=== PATIENT | female | born 1940 | race Caucasian/White ===

== ENCOUNTER 2016-07-11 18:04 | Observation (INO) | payer MEDICARE, OTHER ==
[~2016-07-11] VITALS: Ht 175.3 cm; Wt 85.6 kg
[~2016-07-11 18:04] MED LIST: ASCO100089 PO; BET80 PO; BETA1TAB19 PO; CALC-190 PO; CHOL10008 PO; FEXO-15 PO; FLUO15OI TOPICAL; LACT1CAP75 PO; LISI-571 PO; LUTE1CAP PO; METO25TA99 PO; OMEG1CAP17 PO; POTA2TAB5 PO; RIVA10TA PO
[2016-07-11 18:06] VITALS: BP 154/86; PULSE 83; RESP 16; O2SAT 100
[2016-07-11 18:56] VITALS: BP 144/54; PULSE 76; RESP 16; O2SAT 99
[2016-07-11 19:34] LABS: BASOPHILS % (AUTO) 0.2 % (0-3); EOSINOPHILS % (AUTO) 0.4 % (0-5); Mean Corpuscular Hemoglobin 31.4 pg (27.0-35.0); Mean Corpuscular Volume 95.4 fL (81-100); NEUTROPHILS % (AUTO) 84.9 % (40-74); Platelet Count 229 bil/L (150-400)
[2016-07-11] MEDS ORDERED: cefTRIAXone Inj 2,000 MG in IV Premix 1 EACH IV ONE (20:00)
--- NOTE | 2016-07-11 20:25 | ED.REPORT ---
HPI-General Illness Date of Service Jul 11, 2016 ED Provider: Tania Gomez MD Ms. Goldsmith is a 76 y/o woman with history of atrial fibrillation. Her noticed this morning that her heart rate was irregular with a finger machine but she took her metoprolol and sotalol early. She then was in normal sinus rhythm. She didn't look well this morning. She was fine until 4:00 PM then "cold " and couldn't function. Nursing Notes Stated Complaint: HEART Chief Complaint: General Complaint Allergies: Coded Allergies: celecoxib (Verified Allergy, Mild, ???, 03/08/16) Scheduled Ascorbic Acid (Vitamin C) 1,000 Mg Tab.chew 1,000 MG PO DAILY Calcium Carb/Vit D3/Mag11/Zinc (Mrhuxgj-Fof-Jlwf-Vit D Tablet) 1 Each Tablet 1 EACH PO DAILY Cholecalciferol (Vitamin D3) (Vitamin D3) 1,000 Unit Tab.chew 1,000 UNIT PO DAILY Diltiazem ER (Cardizem CD) 120 Mg Cap.er.24h 120 MG PO DAILY Lactobacillus Combo No.10 (Probiotic) 1 Each Capsule 1 EACH PO DAILY Lisinopril (Lisinopril) 5 Mg Tablet 5 MG PO DAILYWD Lutein Extract/Zeaxanthin Ext (Lutein 15 mg Softgel) 1 Each Capsule 1 EACH PO DAILY [place]-3 Fatty Acids/Fish Oil (Fish Oil Conc 1,000 mg Softgel) 1 Each Capsule 1 EACH PO DAILY Potassium Gluconate (Potassium Gluconate) 90 Mg Tablet 90 MG PO DAILY Rivaroxaban (Xarelto) 10 Mg Tablet 20 MG PO DAILY@17 Vit A/Vit C/Vit E/Zinc/Copper (Preservision Areds Tablet) 1 Each Tablet 1 EACH PO DAILY Scheduled PRN Fexofenadine (Adela Allergy) 60 Mg Tablet 60 MG PO PRN PRN PRN Allergy Fluocinonide 0.05% Oint (Fluocinonide 0.05% Oint) 15 Gm Oint...g. 1 APPLIC TOPICAL PRN PRN PRN Rash General Time Seen by MD: 20:30 Chief Complaint Not feeling well Hx Obtained From: Patient Onset Occurred: 1 - 4 hours ago Symptom Duration: Since onset Severity: Current: No pain currently Associated with: Reports: Anorexia, Weakness, Denies: Abdominal pain, Chest pain, Congestion, Cough, Difficulty breathing, Fever, Headache, Loss of consciousness, Pain, Shortness of breath Additional Notes: Pt denies recent travel or changes in her diet. No sick contacts at home. Pertinent Negative: Exacerbated by nothing, Relieved by nothing Past Medical History Past Medical History Reports: Atrial fibrillation Past Surgical History left arm surgery to remove a cyst Reports: Hip replacement (bilateral) Smoking History Former Smoker Social History Alcohol Use: 3-5 per day (1 glass of white wine) Drug Use: Denies drug use Ambulatory Status Independent Review of Systems Full Review of Systems Constitutional: Reports: Chills, Fatigue, Weakness - generalized, Denies: Fever Complete sys rev & neg: except as marked. Physical Exam Vital Signs Vital Signs Date Time Temp Pulse Resp B/P Pulse Ox O2 Delivery O2 Flow Rate FiO2 07/11/16 23:19 81 15 117/58 96 Room Air 07/11/16 21:12 84 17 117/48 94 Room Air 07/11/16 18:56 76 16 144/54 99 Room Air 07/11/16 18:06 36.8 83 16 154/86 100 Room Air Initial VS: Reviewed, Vital signs abnormal General/Constitutional: Well-developed, Well-nourished Head / Eyes: Atraumatic, Normocephalic, PERRL ENT: Mucous membranes moist, Conjunctiva normal, No scleral icterus Neck: Supple, Non-tender, Full range of motion Respiratory: Breath sounds normal, Clear to auscultation, No respiratory distress Cardiovascular: Regular rate & rhythm, Heart sounds normal, Intact distal pulses Abdomen / GI: Soft, Non-tender, No guarding, No rebound, No distention Back: No CVA tenderness Lymphatic: No lymphadenopathy Extremities: Vascular intact, Neuro intact, No swelling, No tenderness Skin: Warm, Dry, No cyanosis Neurologic: Alert, Oriented, Nonfocal Psychiatric: Mood/affect normal, Behavior normal, Normal thought content Soft Tissue Neck: Positive: Skin erythematous... (Anterior) Interpretation & Diagnostics Interpretation & Diagnostics: CXR IMPRESSION: No acute cardiopulmonary disease. Lab Results Interpretation Result Diagram: 07/13/16 0505 07/13/16 0505 Test 07/11/16 18:20 07/11/16 20:14 07/11/16 20:53 Hold Purple Top Tube Received (Received) Prothrombin Time 10.3sec (8.1-12.5) Prothromb Time International Ratio 0.96ratio Hold Blue Top Tube Received (Received) Magnesium Level 1.9mg/dL (1.6-2.6) Total Bilirubin 0.5mg/dL (0.0-1.2) Aspartate Amino Transf (AST/SGOT) 23U/L (0-50) Alanine Aminotransferase (ALT/SGPT) 15U/L (0-32) Alkaline Phosphatase 71U/L (25-165) Troponin T < 0.010ug/L (0.0-0.011) Pro-B-Type Natriuretic Peptide 483.7pg/mL (0-738) Total Protein 7.5g/dL (6.4-8.4) Albumin 4.2g/dL (3.4-5.0) Hold [place] Top Tube Received (Received) Hold [place] Top Tube Received (Received) Lactic Acid Level 1.3mmol/L (0.4-2.0) Urine Color Yellow (YELLOW) Urine Appearance Clear (CLEAR,HAZY) Urine pH 6.0 (5.0-8.0) Urine Specific [place] 1.020 (1.003-1.035) Urine Protein Negativemg/dL (NEG,TRACE) Urine Glucose (UA) Negativemg/dL (NEGATIVE) Urine Ketones Negativemg/dL (NEGATIVE) Urine Occult Blood Negative (NEGATIVE) Urine Nitrite Negative (NEGATIVE) Urine Bilirubin Negative (NEGATIVE) Urine Urobilinogen Normalmg/dL (NORMAL) Urine Leukocyte Esterase Negative (NEGATIVE) Urine RBC 0-2/hpf (0-2) Urine WBC 0-5/hpf (0-5) Urine Epithelial Cells Few/hpf (NONE-MOD) Urine Crystals None seen (NONE SEEN) Urine Bacteria Few/hpf (NONE-FEW) Urine Hyaline Casts None/lpf (NONE) Urine Granular Casts None seen (NONE SEEN) Urine Waxy Casts None seen (NONE SEEN) Urine Red Blood Cell Casts None seen (NONE SEEN) Urine White Blood Cell Casts None seen (NONE SEEN) Urine Mucus None seen (None Seen) Urine Trichomonas None seen (NONE SEEN) Urine Yeast None (NONE SEEN) Urinalysis Comment None Urine Culture Reflexed Not indicated Re-Eval/Medical Decision Med Decision/Clinical Course 1. Leukocytosis -Elevated WBC 16.7 -No source of infection identified at this time. CXR showed no acute changes and UA was not concerning for a UTI -Physical exam is unremarkable except for mild facial and neck flushing 2. Generalized weakness -Acute Discharge & Departure Primary Impression: Leukocytosis Additional Impression: Generalized weakness Disposition: ADMITTED TO HOSPITAL Referrals: Hernandez Amato MD (PCP) Attending Statement Patient seen and examined. Appears acutely ill, weak, leukocytosis. no fever, no significant respiratory distress, no source of infection identified. No headache, no pneumonia, no significant abdominal pain, no skin breakdown, no urinary symptoms Initial plan was to discharge home with explanation of leukocytosis however upon further examination she is weaker flushed and clinically very concerning appearing. At this point I am uncomfortable sending her home, leukocytosis does suggest some infectious source that I have yet to identify. I suggested hospital admission additional observation to let her body declare itself Reviewed with hospitalist. Admitted. copies to: Hernandez Amato MD, Marissa L DO Jul 11, 2016 20:25 Tania Gomez MD Jul 12, 2016 00:08 Few/hpf (NONE-FEW) Urine Hyaline Casts None/lpf (NONE) Urine Granular Casts None seen (NONE SEEN) Urine Waxy Casts None seen (NONE SEEN) Urine Red Blood Cell Casts None seen (NONE SEEN) Urine White Blood Cell Casts None seen (NONE SEEN) Urine Mucus None seen (None Seen) Urine Trichomonas None seen (NONE SEEN) Urine Yeast None (NONE SEEN) Urinalysis Comment None Urine Culture Reflexed Not indicated Re-Eval/Medical Decision Med Decision/Clinical Course 1. Leukocytosis -Elevated WBC 16.7 -No source of infection identified at this time. CXR showed no acute changes and UA was not concerning for a UTI -Physical exam is unremarkable except for mild facial and neck flushing 2. Generalized weakness -Acute Discharge & Departure Primary Impression: Leukocytosis Additional Impression: Generalized weakness Disposition: ADMITTED TO HOSPITAL Referrals: Hernandez Amato MD (PCP) Attending Statement Patient seen and examined. Appears acutely ill, weak, leukocytosis. no fever, no significant respiratory distress, no source of infection identified. No headache, no pneumonia, no significant abdominal pain, no skin breakdown, no urinary symptoms Initial plan was to discharge home with explanation of leukocytosis however upon further examination she is weaker flushed and clinically very concerning appearing. At this point I am uncomfortable sending her home, leukocytosis does suggest some infectious source that I have yet to identify. I suggested hospital admission additional observation to let her body declare itself Reviewed with hospitalist. Admitted. copies to: Hernandez Amato MD, Marissa L DO Jul 11, 2016 20:25 Tania Gomez MD Jul 12, 2016 00:08
[2016-07-11 20:29] LABS: TROPONIN T < 0.010 ug/L (0.0-0.011)
--- NOTE | 2016-07-11 20:41 | DRSVH ---
PROCEDURE: X-RAY CHEST ONE VIEW, PORTABLE ([id number]) INDICATIONS: 76 year-old female with leukocytosis and weakness. TECHNIQUE: One view of the chest was acquired. COMPARISON: [facility], , SCREENING BILAT W/IMPLANTS MAMMO, 06/18/2015, 10:28. FINDINGS: Surgical changes and devices: Breast implants are again noted. Lungs and pleura: No pleural effusions or pneumothorax. Lungs are clear. Mediastinum: Mediastinal contours appear normal. Heart size is normal. Bones and chest wall: No suspicious bony lesions. Overlying soft tissues appear unremarkable. IMPRESSION: No acute cardiopulmonary disease. Dictated by: Emre Oneil M.D. on 07/11/2016 at 20:39 Approved by: Emre Oneil M.D. on 07/11/2016 at 20:39
[2016-07-11 21:12] VITALS: BP 117/48; PULSE 84; RESP 17; O2SAT 94
[2016-07-11 21:46] LABS: APPEARANCE,URINE CLEAR (CLEAR,HAZY); COLOR,URINE YELLOW (YELLOW); OCCULT BLOOD,URINE NEGATIVE (NEGATIVE); UROBILINOGEN,URINE NORMAL (NORMAL)
[2016-07-11 23:19] VITALS: BP 117/58; PULSE 81; RESP 15; O2SAT 96
[2016-07-12] VITALS (8 sets, daily range): BP systolic 105–149; BP diastolic 48–82; PULSE 72–144; RESP 16–20; O2SAT 96–98
[2016-07-12] MEDS ORDERED: Alum-Mag Hydrox-Simeth 30 mL Suspension PO PRN (00:50)
[2016-07-12] MEDS ORDERED: Polyethylene Glycol (PEG) 17 Gm Powder PO PRN (00:50)
[2016-07-12] MEDS ORDERED: Ondansetron 2 mg/mL 2 mL Inj IVPUSH PRN (00:50)
[2016-07-12 01:26] LABS: INR 0.96 ratio
--- NOTE | 2016-07-12 01:33 | PCM.HPMED ---
Subjective Date of Service Jul 12, 2016 Primary Provider: Admitting Physician: Shreya Garcia MD Primary Care Physician: Hernandez Amato MD Attending Physician: Shreya Garcia MD Chief Complaint: Weakness, Chills History of Present Illness: Meka is a 76 yo F with history of Paroxysmal Afib with RVR and HTN who presents with acute onset of chills and fatigue. She reports that after lunchtime, she developed sudden chills and fatigue after getting [place] from the health club. She reports some lightheadedness but denies any fevers, N/V/D, neck stiffness, chest pain, focal weakness, SOB, or cough. She reports she was at baseline prior to this episode and has been compliant with her medications. She denies any sick contacts, recent travels, or change in her medications. She denies any anginal symptoms and reports that she did have an atrial fibrillation episode earlier in the day but she usually does not have any symptoms when she goes into Afib. She is currently on rhythm control with Sotalol and has been stable on her current medication regimen. In the ED her vitals were stable and her CBC showed WBC of 16.7 with Neutrophils of 84.9%. Her CMP and lactic acid was unremarkable. Her UA was also unremarkable. Her Cxr did not show any acute disease. EKG was NSR with rate in the 80s. She was originally planned for discharge but upon re-examination, patient continued to appear ill and weak, and with a leukocytosis, IV Rocephin was initiated for presumed infection. Review of Systems: 12 Point ROS negative except as stated in HPI Allergies Coded Allergies: celecoxib (Verified Allergy, Mild, ???, 03/08/16) Home Medications From Grata Adela 60 mg Tab take 1 tablet (60MG) by ORAL route 2 times every day calcium 500 mg Tab 2 daily clobetasol 0.05 % scalp solution mix with CeraVe cream twice a day for two weeks , once a day for one week then only 2-3 times a week to the worst areas desonide 0.05 % topical ointment apply twice a day for one week then daily for one week to affected areas on the eyes Fish Oil 1,000 mg Cap 2 daily fluocinonide 0.05 % topical ointment apply by topical route 2 times every day to the affected area(s) for 2 weeks then as needed 1-2 times a week to the worst areas lisinopril 5 mg tablet take 1 tablet by oral route every day lutein-zeaxanthin 15 mg-0.7 mg capsule take 1 capsule by oral route every day metoprolol succinate ER 25 mg tablet,extended release 24 hr take 1 tablet by oral route 2 times every day potassium gluconate 550 mg (90 mg) tablet take 2 tablet by oral route every day PreserVision AREDS 14,320 unit-226 mg-200 unit capsule Probiotic 20 billion cell capsule 30 billion sotalol 80 mg tablet take 1 tablet by oral route 2 times every day triamcinolone acetonide 0.1 % topical cream apply by topical route 2 times every day a thin layer to the affected area(s) for 2 wks then as needed 3 times a week Vitamin C 1,000 mg Tab daily Vitamin D3 1,000 unit tablet take 1 by Oral route every day Xarelto 20 mg tablet take 1 tablet by oral route every day with the evening meal Zovirax 5 % Ointment apply by TOPICAL route every 3 hours 6 times per day to the affected area(s) PMH Paroxysmal Atrial Fibrillation w/ RVR - currently rhythm controlled HTN Reports Eczema Surgical History Bilateral Hip Replacement Breast Implants Family History Noncontributory Social History Hx Alcohol Use: Yes (2 glasses of white wine a day) Hx Substance Use: No Hx Tobacco Use: No Smoking Status: Former Smoker Living Arrangement: with Family Exam Vital Signs Vital Sign - Last Date Time Temp Pulse Resp B/P Pulse Ox O2 Delivery O2 Flow Rate FiO2 07/12/16 00:48 37.6 83 16 144/48 96 Room Air Intake and Output 07/11/16 07/11/16 07/12/16 Cumulative From/Thru 15:00 23:00 07:00 07/11/16 18:06 - 07/11/16 20:51 Output Total 150 ml 150 ml Balance -150 ml -150 ml Output Urine Total 150 ml 150 ml # Voids 1 1 Exam Gen: Well developed Female who appears fatigued HEENT: Sclera Non-icteric, PERRLA, EOMI, Oropharynx non-erythematous Neck: Soft, non-tender, no lymphadenopathy noted CV: RRR with systolic murmur noted, no JVD noted Resp: CTAB, no w/r/c, normal respiratory effort Abd: Soft, non-tender, normoactive BS Msk: MS grossly intact and equal. No peripheral edema noted Neuro: Alert and Oriented, CN2-12 Grossly intact Skin: Warm, dry, intact, no rashes noted Psych: Appropriate mood and affect Lab and Diagnostics Result Diagram: 07/11/16181907/11/161819 Microbiology BCX pending X-Rays, CTs and MRIs PROCEDURE: X-RAY CHEST ONE VIEW, PORTABLE ([id number]) INDICATIONS: 76 year-old female with leukocytosis and weakness. TECHNIQUE: One view of the chest was acquired. COMPARISON: [facility], , SCREENING BILAT W/IMPLANTS MAMMO, 06/18/2015 , 10:28. FINDINGS: Surgical changes and devices: Breast implants are again noted. Lungs and pleura: No pleural effusions or pneumothorax. Lungs are clear. Mediastinum: Mediastinal contours appear normal. Heart size is normal. Bones and chest wall: No suspicious bony lesions. Overlying soft tissues appear unremarkable. IMPRESSION: No acute cardiopulmonary disease. Assessment & Plan 76 yo F with h/o Afib and HTN who presents with acute onset of chills, fatigue, and leukocytosis. No source of infection is identified, but patient continues to appear ill, so she is being admitted for observation and further workup. Leukocytosis -Uncertain of infectious source. CXR and UA unremarkable. Patient does not have any other complaints besides chills and weakness -DDx, atypical pneumonia, overexertion; since she reports this happened after her exercise session at the health club, and malignancy -Will continue IV Rocephin that was started in the ED -BCx pending Paroxysmal Atrial Fibrillation, POA -Currently Rhythm controlled with Sotalol, she is also on Metoprolol -Anticoagulated with Xarelto, no bleeding issues -Continue home meds HTN -Stable, continue home meds Pain Evaluation: Adequate Pain Control VTE Prophylaxis: Other (xarelto) Resuscitation Status: CPR: Attempt Resuscitation Attending Statement Pt seen and examined by myself and agree with above plan. Ezio Reagan DO Jul 12, 2016 01:33 Shreya Garcia MD Jul 12, 2016 18:45
[2016-07-12] MEDS ORDERED: CALC-198 PO (03:01)
[2016-07-12] MEDS ORDERED: MeTOProlol 1 mg/mL 5 mL Inj IV ONE (03:20)
--- NOTE | 2016-07-12 05:20 | NUR ---
Admit Pt admitted to [facility] room 3014 at 0130, able to ambulate SBA, steady on feet. A/Ox4. Pt oriented to room and call light, and also watched orientation video. Pt does have exzema-like generalized patches on bilateral legs and a large patch on left buttocks that blanches. Pt reports she uses cream at home for these. Pt denies pain or nausea and is on RA. Placed on telemetry. Pt has hx of Afib and converted to Afib RVR 130-140s at 0256. paged and ordered Metoprolol 5mg IV. This was given and pt Afib down to 110-120s. This morning at 0439 Afib is back up to 140s-150s RVR. paged again and new order for Diltiazem 10 mg IV obtained. Addendum: 07/12/16 at 0651 by KJ TERRY RN Per production control technologist pt is in AFib 120s, sometimes jumping into 140s nothing sustained above 120s.
[2016-07-12] MEDS ORDERED: Diltiazem 5 mg/mL 5 mL Inj IV ONE (05:25)
[2016-07-12 07:30] LABS: BASOPHILS % (AUTO) 0.2 % (0-3); EOSINOPHILS % (AUTO) 0.4 % (0-5); MONOCYTES % (AUTO) 11.1 % (4-12); Mean Corpuscular Hemoglobin 31.4 pg (27.0-35.0); Platelet Count 197 bil/L (150-400)
--- NOTE | 2016-07-12 08:27 | PCM.PNMED ---
Subjective Date of Service Jul 12, 2016 Perez Ackerman reports that since January of this year, she has felt more fatigued and sometimes has palpitations with her paroxysmal atrial fibrillation. She reports that she does not miss he home sotalol or metoprolol doses. Overnight, she has had several episodes of atrial fibrillation with a rapid ventricular rate in the 130s-150s for which she was given metoprolol 5mg IV once and Diltiazem 10mg IV once. She has been taking both metoprolol 25mg BID and sotalol 80mg BID at home. Exam Vital Signs Vital Sign - Last Date Time Temp Pulse Resp B/P Pulse Ox O2 Delivery O2 Flow Rate FiO2 07/12/16 04:39 125 07/12/16 04:32 37.7 18 126/82 96 Room Air Intake and Output 07/11/16 07/11/16 07/12/16 Cumulative From/Thru 15:00 23:00 07:00 07/11/16 18:06 - 07/12/16 05:29 Intake Total 200 ml 200 ml Output Total 150 ml 800 ml 950 ml Balance -150 ml -600 ml -750 ml Intake Oral 200 ml 200 ml Output Urine Total 150 ml 800 ml 950 ml # Voids 1 1 # Bowel Movements 0 0 Exam General: Elderly female patient sitting up in bed eating breakfast upon my entering the room. Awake, alert, and oriented. No acute distress HEENT: Moist mucus membranes, sclera anicteric. Neck supple with lymphadenopathy. Cardiac: Irregularly irregular. No murmur, rub , or gallop Respiratory: Moderate inspiratory effort. No wheezes, rales, or rhonchi Abdomen: Normoactive bowel tones. Soft, nondistended and nontender without hepatosplenomegaly Extremities: No clubbing, cyanosis, or edema bilaterally Neuro: Moves all 4 extremities with ease. Normal speech. IVs and Medications Medications Reviewed: Medications were reviewed in detail Lab and Diagnostics Result Diagram: 07/12/1671407/12/16714 Microbiology Blood cultures pending X-Rays, CTs and MRIs X-RAY CHEST ONE VIEW, PORTABLE ([id number]) INDICATIONS: 76 year-old female with leukocytosis and weakness. TECHNIQUE: One view of the chest was acquired. COMPARISON: [facility], , SCREENING BILAT W/IMPLANTS MAMMO, 06/18/2015 , 10:28. FINDINGS: Surgical changes and devices: Breast implants are again noted. Lungs and pleura: No pleural effusions or pneumothorax. Lungs are clear. Mediastinum: Mediastinal contours appear normal. Heart size is normal. Bones and chest wall: No suspicious bony lesions. Overlying soft tissues appear unremarkable. IMPRESSION: No acute cardiopulmonary disease. Assessment & Plan Meka is a 76yo female with history of paroxysmal atrial fibrillation despite electric cardioversion in 02/2016 who presents with acute onset of chills, fatigue, and leukocytosis. No source of infection has been identified, however she appeared ill and thus has been admitted for further evaluation. Overnight, she had several episodes of atrial fibrillation with RVR which is not yet controlled. 1. Paroxysmal Atrial Fibrillation with RVR - Poorly controlled ventricular rate which only very temporarily improved with IV metoprolol and IV diltiazem push. - Diltiazem 30mg q6h, may increase to 60mg or 80mg q6h if needed; plan to adjust to extended release formulation for home use - Anticoagulated with Xarelto, continue 2. Leukocytosis, improving -Uncertain if there is an infectious etiology -BCx pending 3. Essential hypertension, chronic and stable -Continue to monitor VTE Prophylaxis: Other (Xarelto) VTE Mechanical Devices: Intermittant Pneumatic CD Resuscitation Status: CPR: Attempt Resuscitation Attending Statement The patient was seen and examined together with Dr. Smith on 07/12/2016 and I agree with the history, exam and plan as outlined in the note above. Bonnie Smith DO Jul 12, 2016 08:22 Ricci Bailey MD Jul 13, 2016 10:36
[2016-07-12] MEDS ORDERED: Calcium Carbonate (Oyster Shell) 500 mg Tablet PO SCH (08:30)
[2016-07-12] MEDS ORDERED: POTASSIUM GLUCONATE 90 MG PO SCH (08:30)
[2016-07-12] MEDS ORDERED: MeTOProlol XL 25 mg ER24 Tablet PO SCH (08:30)
[2016-07-12] MEDS: Ascorbic Acid 500 mg Tablet PO SCH (08:34)
--- NOTE | 2016-07-12 11:54 | NUR ---
Social Work-initial assessment/ readiness for discharge: Data:See initial assessment. Pt is a 76 y/o female who was admitted on 07/12/16 for AFIB with RVR per H&P. Pt's insurance is [email or web address] and PCP is Hernandez Amato MD. EMR reviewed. SW met with pt at bedside to discuss discharge planning, SW role explained. Pt is alert and oriented x3. Pt resides at home with her on [facility] where she remains independent with ADLS. Pt does have 2 steps to enter home, but also has ramp if needed. Pt does drive and does not use any DME. Pt has no HH Or SNF history. 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 Per RN notes, pt has been up independent in her room. Pt's to provide transport home at discharge. SW provided phone number and plan on white board in room. No anticipated discharge needs. SW will continue to follow if needs arise. Assessment:Pt who is independent at baseline. Plan:Pt to discharge home when medically stable via POV. No anticipated discharge needs. SW will continue to follow if needs arise. PRISCA Eduardo Addendum: 07/12/16 at 1158 by PAUL FERNANDEZ SS Amended: Links added.
[2016-07-13 01:01] VITALS: BP 112/66; PULSE 67; RESP 18; O2SAT 97
[2016-07-13 05:36] VITALS: BP 109/69; PULSE 69; RESP 18; O2SAT 99
[2016-07-13 05:42] LABS: BASOPHILS % (AUTO) 0.4 % (0-3); EOSINOPHILS % (AUTO) 3.9 % (0-5); MONOCYTES % (AUTO) 15.3 % (4-12); Mean Corpuscular Hemoglobin 31.8 pg (27.0-35.0); NEUTROPHILS % (AUTO) 60.8 % (40-74); Platelet Count 185 bil/L (150-400)
--- NOTE | 2016-07-13 08:02 | PCM.DIMED ---
Luis,Bonnie Gaxiola DO 07/13/16 0759: Discharge Instructions Date of Service Jul 13, 2016 Dates of Hospitalization Jul 12, 2016 at 00:37 Discharge Diagnosis Discharge Diagnosis Paroxysmal Atrial Fibrillation with RVR, now converted to normal sinus rhythm Leukocytosis, resolved. - Likely reactive leukocytosis Essential hypertension, chronic and stable Medication Instructions STOP taking the sotalol and metoprolol. START diltiazem 1 tablet by mouth daily at the same time of day each day. The prescribed diltiazem is long acting, thus it is not something that you should take more than once per day. Continue with your other home medications, this includes the once daily Xarelto. Test Results Chest xray: FINDINGS: Surgical changes and devices: Breast implants are again noted. Lungs and pleura: No pleural effusions or pneumothorax. Lungs are clear. Mediastinum: Mediastinal contours appear normal. Heart size is normal. Bones and chest wall: No suspicious bony lesions. Overlying soft tissues appear unremarkable. IMPRESSION: No acute cardiopulmonary disease. Dictated by: Emre Oneil M.D. on 07/11/2016 at 20:39 Diet Heart Healthy Activity No restrictions Call your provider Fever or Chills, Shortness of breath, Bleeding, Chest pain, Vomitting, Excessive diarrhea, Weakness (unilateral) Patient Instructions Please call to schedule a follow up appointment with Dr Bishop, to be seen in 7 -10 days. Follow-up Provider: Isaiah Bishop MD Follow-up with PCP in: 1 week Ricci Bailey MD 07/14/16 1353: Bonnie Smith DO Jul 13, 2016 07:59 Ricci Bailey MD Jul 14, 2016 13:53
[2016-07-13] MEDS: Ascorbic Acid 500 mg Tablet PO SCH (08:05)
[2016-07-13] MEDS ORDERED: Diltiazem CD 120 mg ER24 Capsule PO SCH (08:30)
[2016-07-13 09:39] VITALS: BP 118/70; PULSE 69; RESP 17; O2SAT 97
--- NOTE | 2016-07-13 10:20 | NUR ---
Case Management: OBS brochure given and explained at 10:10. Dayan REARDON RN
[2016-07-13] MEDS ORDERED: DILT120C83 PO (11:25)
--- NOTE | 2016-07-13 11:54 | NUR ---
Social Work-discharge: data:EMR Reviewed. Pt is on day 1 of hospitalization for general weakness per H&P. Pt is medically stable for discharge today. SW followed up with pt and at bedside. Pt and declining any SW needs. Pt has been up independent in her room. Pt's to provide transport home today. No discharge needs identified. All updated and agreeable to plan. Assessment:Pt who is independent at baseline. Plan:Pt to discharge home today via POV. No discharge needs identified. All updated and agreeable to plan. PRISCA Eduardo
--- NOTE | 2016-07-13 13:15 | NUR ---
Discharge Patient departed unit via wheelchair, accompanied by staff and spouse. Patient alert and oriented x 3. Patient denied pain, shortness of breath, nausea prior to discharge. Discharge instructions/medications reviewed with patient/spouse prior to discharge. All questions addressed. Patient belongings, discharge instructions and prescription in hand.
--- NOTE | 2016-07-13 16:32 | PCM.DC.MED ---
Discharge Summary Date of Service Jul 13, 2016 Dates of Hospitalization Date of Hospital Admission Jul 12, 2016 at 00:37 Date of Discharge: Jul 13, 2016 Providers: Admitting Physician: Shreya Garcia MD Primary Care Physician: Hernandez Amato MD Attending Physician: Shreya Garcia MD Diagnosis at Time of Discharge Diagnosis at Time of Discharge Paroxysmal Atrial Fibrillation with RVR, now converted to normal sinus rhythm Leukocytosis, resolved. - Likely reactive leukocytosis Essential hypertension, chronic and stable Procedures XRay, CTs & MRIs X-RAY CHEST ONE VIEW, PORTABLE ([id number]) INDICATIONS: 76 year-old female with leukocytosis and weakness. TECHNIQUE: One view of the chest was acquired. COMPARISON: [facility], , SCREENING BILAT W/IMPLANTS MAMMO, 06/18/2015 , 10:28. FINDINGS: Surgical changes and devices: Breast implants are again noted. Lungs and pleura: No pleural effusions or pneumothorax. Lungs are clear. Mediastinum: Mediastinal contours appear normal. Heart size is normal. Bones and chest wall: No suspicious bony lesions. Overlying soft tissues appear unremarkable. IMPRESSION: No acute cardiopulmonary disease. Brief History Per H&P by Dr Reagan: Meka is a 76 yo F with history of Paroxysmal Afib with RVR and HTN who presents with acute onset of chills and fatigue. She reports that after lunchtime, she developed sudden chills and fatigue [place]. She reports some lightheadedness but denies any fevers, N/V/D, neck stiffness, chest pain, focal weakness, SOB, or cough. She reports she was at baseline prior to this episode and has been compliant with her medications. She denies any sick contacts, recent travels, or change in her medications. She denies any anginal symptoms and reports that she did have an atrial fibrillation episode earlier in the day but she usually does not have any symptoms when she goes into Afib. She is currently on rhythm control with Sotalol and has been stable on her current medication regimen. In the ED her vitals were stable and her CBC showed WBC of 16.7 with Neutrophils of 84.9%. Her CMP and lactic acid was unremarkable. Her UA was also unremarkable. Her Cxr did not show any acute disease. EKG was NSR with rate in the 80s. She was originally planned for discharge but upon re-examination, patient continued to appear ill and weak, and with a leukocytosis, IV Rocephin was initiated for presumed infection. On the date of discharge, the patient remained without any source of infection with a normal leukocyte count. She was in normal sinus rhythm in the 60s-70s for 20 hours prior and reported feeling back to her usual health. Physical examination at discharge: General: Elderly female patient ambulating independently and with ease in the exam room. Awake, alert, and oriented. No acute distress HEENT: Moist mucus membranes, sclera anicteric. Neck supple without lymphadenopathy. Cardiac: RRR, No murmur, rub , or gallop. No JVD Respiratory: Good inspiratory effort. No wheezes, rales, or rhonchi Abdomen: Normoactive bowel tones. Soft, nondistended and nontender without hepatosplenomegaly Extremities: No clubbing, cyanosis, or edema bilaterally Neuro: Moves all 4 extremities with ease. Normal speech. Hospital Course Meka has been treated for the following during this hospitalization: Meka is a 76yo female with history of paroxysmal atrial fibrillation despite electric cardioversion in 02/2016 who presents with acute onset of chills, fatigue, and leukocytosis. No source of infection has been identified, however she appeared ill and thus has been admitted for further evaluation. Overnight, she had several episodes of atrial fibrillation with RVR which is not yet controlled. 1. Paroxysmal Atrial Fibrillation with RVR - Poorly controlled ventricular rate which only very temporarily improved with IV metoprolol and IV diltiazem push. - Metoprolol and sotalol were discontinued - Diltiazem 30mg q6h given and the patient converted to NSR. She remained in NSR with diltiazem; discharged with Diltiazem 120mg Extended release once daily. - Anticoagulated with Xarelto, continued during her hospitalization - Advised to follow up with her primary care provider and Dr Bishop. 2. Leukocytosis, resolved - No identified infectious etiology, resolved rapidly with conversation to NSR - Suspect this was reactive leukocytosis - Blood cultures without growth 3. Essential hypertension, chronic and stable Exam Vital Signs (Last) Date Time Temp Pulse Resp B/P Pulse Ox O2 Delivery O2 Flow Rate FiO2 07/13/16 09:39 36.7 69 17 118/70 97 Room Air Test 1/9/17 18:20 07/11/16 20:14 07/11/16 20:53 07/12/16 05:30 Hold Purple Top Tube Received (Received) Prothrombin Time 10.3sec (8.1-12.5) Prothromb Time International Ratio 0.96ratio Hold Blue Top Tube Received (Received) Magnesium Level 1.9mg/dL (1.6-2.6) Total Bilirubin 0.5mg/dL (0.0-1.2) Aspartate Amino Transf (AST/SGOT) 23U/L (0-50) Alanine Aminotransferase (ALT/SGPT) 15U/L (0-32) Alkaline Phosphatase 71U/L (25-165) Troponin T < 0.010ug/L (0.0-0.011) Pro-B-Type Natriuretic Peptide 483.7pg/mL (0-738) Total Protein 7.5g/dL (6.4-8.4) Albumin 4.2g/dL (3.4-5.0) Hold [place] Top Tube Received (Received) Hold [place] Top Tube Received (Received) Lactic Acid Level 1.3mmol/L (0.4-2.0) Urine Color Yellow (YELLOW) Urine Appearance Clear (CLEAR,HAZY) Urine pH 6.0 (5.0-8.0) Urine Specific [place] 1.020 (1.003-1.035) Urine Protein Negativemg/dL (NEG,TRACE) Urine Glucose (UA) Negativemg/dL (NEGATIVE) Urine Ketones Negativemg/dL (NEGATIVE) Urine Occult Blood Negative (NEGATIVE) Urine Nitrite Negative (NEGATIVE) Urine Bilirubin Negative (NEGATIVE) Urine Urobilinogen Normalmg/dL (NORMAL) Urine Leukocyte Esterase Negative (NEGATIVE) Urine RBC 0-2/hpf (0-2) Urine WBC 0-5/hpf (0-5) Urine Epithelial Cells Few/hpf (NONE-MOD) Urine Crystals None seen (NONE SEEN) Urine Bacteria Few/hpf (NONE-FEW) Urine Hyaline Casts None/lpf (NONE) Urine Granular Casts None seen (NONE SEEN) Urine Waxy Casts None seen (NONE SEEN) Urine Red Blood Cell Casts None seen (NONE SEEN) Urine White Blood Cell Casts None seen (NONE SEEN) Urine Mucus None seen (None Seen) Urine Trichomonas None seen (NONE SEEN) Urine Yeast None (NONE SEEN) Urinalysis Comment None Urine Culture Reflexed Not indicated C-Reactive Protein 6.0mg/dL (0.0-0.5) Procalcitonin 0.05ng/mL (See Comment) Thyroid Stimulating Hormone (TSH) 0.889uIU/mL (0.450-4.500) Test 07/13/16 05:05 White Blood Count 7.3th/mm3 (3.8-10.1) Red Blood Count 3.77mil/mm3 (3.90-5.20) Hemoglobin 12.0g/dL (12.0-15.6) Hematocrit 35.8% (35.0-46.0) Mean Corpuscular Volume 95.0fL (81-100) Mean Corpuscular Hemoglobin 31.8pg (27.0-35.0) Mean Corpuscular Hemoglobin Concent 33.5% (32.0-37.0) Red Cell Distribution Width 13.3% (12.3-15.4) Platelet Count 185bil/L (150-400) Neutrophils (%) (Auto) 60.8% (40-74) Lymphocytes (%) (Auto) 19.3% (14-46) Monocytes (%) (Auto) 15.3% (4-12) Eosinophils (%) (Auto) 3.9% (0-5) Basophils (%) (Auto) 0.4% (0-3) Sodium Level 141mEq/L (134-144) Potassium Level 4.5mEq/L (3.5-5.2) Chloride Level 105mEq/L (97-108) Carbon Dioxide Level 24mmol/L (18-29) Blood Urea Nitrogen 23mg/dL (8-27) Creatinine 0.82mg/dL (0.57-1.00) Estimat Glomerular Filtration Rate 97mL/min (>59) Glucose Level 110mg/dL (60-99) Calcium Level 8.7mg/dL (8.5-10.1) Discharge Medications Discharge Medications Ascorbic Acid (Vitamin C) 1,000 Mg Tab.chew 1,000 MG PO DAILY (Reported) Calcium Carb/Vit D3/Mag11/Zinc (Isqibjv-Yrw-Avpm-Vit D Tablet) 1 Each Tablet 1 EACH PO DAILY (Reported) Cholecalciferol (Vitamin D3) (Vitamin D3) 1,000 Unit Tab.chew 1,000 UNIT PO DAILY (Reported) Diltiazem ER (Cardizem CD) 120 Mg Cap.er.24h 120 MG PO DAILY Prescribed by: RAY SMITH DO Lactobacillus Combo No.10 (Probiotic) 1 Each Capsule 1 EACH PO DAILY (Reported) Lisinopril (Lisinopril) 5 Mg Tablet 5 MG PO DAILYWD Prescribed by: JOSE DE JESUS ELLIOTT Lutein Extract/Zeaxanthin Ext (Lutein 15 mg Softgel) 1 Each Capsule 1 EACH PO DAILY (Reported) [place]-3 Fatty Acids/Fish Oil (Fish Oil Conc 1,000 mg Softgel) 1 Each Capsule 1 EACH PO DAILY (Reported) Potassium Gluconate (Potassium Gluconate) 90 Mg Tablet 90 MG PO DAILY (Reported ) Rivaroxaban (Xarelto) 10 Mg Tablet 20 MG PO DAILY@17 Prescribed by: JOSE DE JESUS ELLIOTT Vit A/Vit C/Vit E/Zinc/Copper (Preservision Areds Tablet) 1 Each Tablet 1 EACH PO DAILY (Reported) As needed Fexofenadine (Adela Allergy) 60 Mg Tablet 60 MG PO PRN PRN PRN Allergy ( Reported) Fluocinonide 0.05% Oint (Fluocinonide 0.05% Oint) 15 Gm Oint...g. 1 APPLIC TOPICAL PRN PRN PRN Rash (Reported) Additional med instructions STOP taking the sotalol and metoprolol. START diltiazem 1 tablet by mouth daily at the same time of day each day. The prescribed diltiazem is long acting, thus it is not something that you should take more than once per day. Continue with your other home medications, this includes the once daily Xarelto. Followup Plan Disposition: Home with her Discharge Diet: Heart Healthy Discharge Activity: No restrictions Patient Instructions Please call to schedule a follow up appointment with Dr Bishop, to be seen in 7 -10 days. Follow-up Provider: Isaiah Bishop MD Follow-up with PCP in: 1 week Provider: Hernandez Amato MD Follow-up in: Other (1-2 weeks) Time spent 35 minutes Attending Statement The patient was seen and examined together with Dr. Smith on 07/13/2016 and I agree with the history, exam and plan as outlined in the note above. copies to: Hernandez Amato MD, Rachel M DO Jul 13, 2016 12:11 Ricci Bailey MD Jul 14, 2016 13:54
== END 2016-07-13 13:13 | disposition home or self-care (01) ==
LOC: SED 18:04 → MPC 07-12 00:37
PROVIDERS: ADMIT Specialist; ATTEND Specialist
DX: I48.0 Paroxysmal atrial fibrillation (principal); R00.0 Tachycardia, unspecified; D72.829 Elevated white blood cell count, unspecified; R53.1 Weakness; I10 Essential (primary) hypertension; Z79.01 Long term (current) use of anticoagulants; L30.9 Dermatitis, unspecified; Z87.891 Personal history of nicotine dependence; Z96.643 Presence of artificial hip joint, bilateral; Z98.82 Breast implant status
CPT/HCPCS: 36415; 71010; 80048; 80053; 81000; 82308; 83605; 83735; 83880; 84443; 84484; 85025; 85610; 86140; 87040; 93005; 96365; 96375; 99285; G0378; J0696